=== PATIENT | female | born 1940 | race Caucasian/White ===

== ENCOUNTER 2022-01-06 10:15 | Observation (INO) ==
--- NOTE | 2022-01-06 10:33 | Emergency Department Note ---
HPI General Chief complaint: Nausea/Vomiting/Diarrhea Stated complaint: N/V/D Time Seen by Provider: 01/06/22 10:30 Source: patient Mode of arrival: wheelchair History of Present Illness HPI Narrative: Nausea vomiting diarrhea for weeks. Diarrhea least 3 weeks Patient seen by PCP January 04 with decreasing metoprolol and stopping spironola ctone due to patient having episodes of hypotension, additionally duloxetine stopped because of reported diarrhea symptoms, subsequently laboratory results informed she was hyperkalemic, per my review appears to be moderately dehydrated and slight increase in creatinine Patient does admit to taking dose of 40 mg Lasix to days ago as she felt she was filling with fluid and has taken this as needed for some time however she did not have any urinary output after taking this Emesis is not bloody, bilious or coffee ground, bowel movements not bloody or dark tarry . Patient denies current CP, sob, fever, chills, headache, focal weakness, loss/change of sensation or any other complaints at this time. Patient does take omeprazole daily states she has been consistent PMH/PSHx/Meds/Allergies/SH/FH as per nursing documentation and reviewed. A full 10 point review of systems reviewed and negative except as noted in HPI. Related Data Home Medications Medication Instructions Recorded Confirmed albuterol sulfate 90 mcg/actuation 2 puff INHALATION QID 08/26/19 01/04/22 aerosol inhaler (ProAir HFA) calcium carbonate 500 mg calcium 500 mg PO QDAY PRN 08/26/19 01/04/22 (1,250 mg) capsule cholecalciferol (vitamin D3) 125 See Rx Instructions PO QDAY tab 08/26/19 01/04/22 mcg (5,000 unit) disintegrating tablet [id number] intramuscular See Rx Instructions IM QMONTH 08/26/19 01/04/22 Previous Rx's Medication Instructions Recorded omeprazole 20 mg capsule,delayed 20 mg PO ACB #90 cap 03/22/21 release diclofenac sodium 1 % topical gel See Rx Instructions .ROUTE 06/20/21 .COMPLEX #100 g fluticasone propionate 50 1 spray INTRANASAL Q12H #16 g 08/15/21 mcg/actuation nasal spray,suspension (Flonase Allergy Relief) betamethasone dipropionate 0.05 % 1 applic TOPICAL BID PRN #180 ml 09/26/21 lotion furosemide 40 mg tablet 40 mg PO QAM PRN #90 tab 10/20/21 levothyroxine 88 mcg tablet 88 mcg PO QDAY #90 tab 10/20/21 duloxetine 20 mg capsule,delayed 20 mg PO QDAY #30 cap 12/14/21 release metoprolol succinate 100 mg See Rx Instructions .ROUTE 01/04/22 tablet,extended release 24 hr .COMPLEX #270 tab olmesartan 20 mg tablet 20 mg PO QDAY #30 tab 01/04/22 spironolactone 50 mg tablet 25 mg PO QAM #90 tab 01/04/22 Allergies Allergy/AdvReac Type Severity Reaction Status Date / Time atorvastatin [From Lipitor] Allergy Severe Unknown Verified 01/04/22 11:42 buprenorphine Allergy Severe Unknown Verified 01/04/22 11:42 lorazepam [From Ativan] Allergy Severe Unknown Verified 01/04/22 11:42 amlodipine AdvReac Mild edema Verified 01/04/22 11:42 pain medications Allergy Unknown Unknown - Uncoded 01/04/22 11:42 intolerance Review of Systems ROS ROS Narrative: see HPI PFSH Narrative Patient History Narrative: Narrative: Medical/Surgical/Family History All Active Problems (Updated 01/06/22 @ 15:11 by Surendra Allen DO) Acute kidney injury (Acute) Acute dehydration (Acute) Acute hyperkalemia (Acute) Nausea vomiting and diarrhea (Acute) Abdominal pain (Acute) Hypotension (Acute) Grief (Acute) Non-healing wound of left upper extremity (Acute) Cough (Acute) Post-nasal drip (Acute) Wound disruption (Acute) Weakness (Acute) Chronic pain of right knee (Acute) Shoulder pain, right (Acute) Thoracic back pain (Acute) Trigger finger (Acute) SOB (shortness of breath) (Acute) Skin candidiasis (Acute) Scalp psoriasis (Acute) Bradycardia (Acute) Skin lesion (Acute) History of diverticular abscess (Chronic) Arterial insufficiency (Chronic) Diverticulosis (Chronic) Systolic murmur (Chronic) Insomnia (Chronic) Anxiety (Chronic) Headache (Chronic) Depression (Chronic) Hip pain (Chronic) Degenerative disc disease, lumbar (Chronic) Hyperlipidemia (Chronic) Collagenous colitis (Chronic) Fatigue (Chronic) Emphysema, unspecified (Chronic) Degeneration, intervertebral disc, cervical (Chronic) Hypertension (Chronic) Hypothyroidism (Chronic) Carotid artery disease (Chronic) COPD (chronic obstructive pulmonary disease) (Chronic) Arthralgia (Chronic) Ventral hernia (Chronic) Renal failure (Chronic) Vertigo (Chronic) Arterial occlusive disease (Chronic) Peripheral neuropathy (Chronic) Urinary incontinence (Chronic) Chronic venous insufficiency (Chronic) Back pain (Chronic) Osteoarthritis (Chronic) Trigger finger, left ring finger (Chronic) Atrial fibrillation (Chronic) Psoriasis (Chronic) Encounter for long-term (current) use of medications (Chronic) Plantar fasciitis (Chronic) Neck pain (Chronic) Actinic keratosis (Chronic) Influenza (Chronic) Hypokalemia (Chronic) Influenza A (Acute) Hypokalemia (Acute) Medical History (Updated 01/06/22 @ 15:11 by Surendra Allen DO) Actinic keratosis Anxiety Arterial insufficiency RLE Arterial occlusive disease Arthralgia Atrial fibrillation Back pain Carotid artery disease Chronic venous insufficiency Collagenous colitis COPD (chronic obstructive pulmonary disease) Degeneration, intervertebral disc, cervical Degenerative disc disease, lumbar Depression Diverticulosis Emphysema, unspecified Encounter for long-term (current) use of medications Fatigue Headache Hip pain History of diverticular abscess Hyperlipidemia Hypertension Hypokalemia Hypothyroidism Influenza Insomnia Neck pain Osteoarthritis Peripheral neuropathy Plantar fasciitis Psoriasis Renal failure Systolic murmur Trigger finger, left ring finger Urinary incontinence Ventral hernia Vertigo Surgical History H/O cataract extraction History of appendectomy (~1985) History of back surgery (03/21/06) fusion L4-[address] Villarreal History of cholecystectomy (~1998) History of esophagogastroduodenoscopy (EGD) (10/11/16) History of hysterectomy (~1974) History of laminectomy (~10/2002) History of surgery (02/01/10) sigmoid colectomy performed by Dr. Gonzalez History of surgery left thumb, performed by Dr. Kaufman Family History Other No pertinent family history Social History Smoking Status: Never smoker Alcohol Intake Frequency: holiday/special occasion only Substance Use: does not use Exam Narrative Narrative: PHYSICIAL EXAM: Vitals reviewed GENERAL: Awake and alert in room, nontoxic-appearing appears nourished and normally developed. Vital signs as documented. EYES: Head exam is unremarkable. No scleral icterus HEENT: Mucous membranes moist. Nares patent without copious rhinorrhea. LUNGS: Lungs are clear to auscultation, -r/r/w without any respiratory distress. CARDIAC: Rhythm is regular. No dysrhythmias or murmurs. ABDOMEN: + mild tenderness palpation epigastric area, otherwise Soft, non- tender, non-distended, no rebound/guarding, with no obvious masses EXTREMITIES: No peripheral edema, with no obvious deformities. No asymmetric swelling of distal lower extremities, no calf pain to palpation, no cough exam findings concerning for deep venous thrombosis, well-perfused SKIN: Good color, with no significant rashes. No pallor. NEURO: No obvious neurological deficits, normal sensation and strength bilaterally. Patient able to ambulate. PSYCH: Mood and affect normal. Appropriate for age. Course Reevaluation(s) Reevaluation #1: Although able to establish line to give patient IV hydration difficult obtaining blood sample, will obtain EKG just to recent hyperkalemia and continue to monit or Time: 11:33 Reevaluation #2: Patient found to have elevated potassium without any EKG changes, not receiving fluids, patient is having difficulty urinating and having output which is not initially reported will obtain bladder scan to evaluate for outlet obstruction contributing to kidney function, patient not currently on Lasix or spironolactone, potassium not significantly changed from recent blood test but increasing BUN and creatinine, on exam does have pressure palpation in suprapubic area states she is on Advair which helped for the last 2 days. Believe potassium should decrease with IV hydration additionally ionized calcium within normal limits, and EKG unchanged from 12/19/2020 Bedside ultrasound performed without any significant urinary retention we will continue to hydrate Time: 12:18 Reevaluation #3: Patient has received 1 L of fluid without any significant urinary output, understands reasoning for admission declines Thomas being placed Time: 14:01 Additional Reevaluation(s): 1420 patient continues to feel improved, awaiting repeat metabolic panel testing determine need for further intervention prior to admission 1422 no change in potassium, slight improvement in creatinine but no change in BUN, due to persistent hyperkalemia will give dose of dextrose and insulin, and discuss with admitting Consultations Consultation #1: Dr. Garay spoke to the admitting physician about the patient's clinical workup as well as the emergency medicine treatment. Physician agrees to admission to their service at this time. Accepting physician will continue the medical evaluation/workup and treatment plan upon admission and add additional testing, interventions/treatment as necessary consider setting C. difficile toxin, additionally discussed reasoning for giving more insulin dextrose for hyperkalemia patient refusing Thomas catheter, creatinine improving seems most likely just component of dehydration Time: 15:34 Consultation #2: Patient now had 400 mL or urine output after 2 L NS, will change fluid to 200 mL/hr maintenance Time: 15:52 Vital Signs Vital signs: Vital Signs Temperature 97.2 F 01/06/22 10:21 Pulse Rate 93 H 01/06/22 10:21 Respiratory Rate 18 01/06/22 10:21 Blood Pressure 111/62 01/06/22 10:21 Pulse Oximetry (%) 98 01/06/22 10:21 Temperature 97.2 F 01/06/22 10:21 Pulse Rate 77 01/06/22 15:01 Respiratory Rate 20 01/06/22 15:32 Blood Pressure 165/75 01/06/22 15:32 Pulse Oximetry (%) 97 01/06/22 15:01 [facility] MDM Narrative Medical decision making narrative: All results/imaging obtained reviewed and interpreted, results trended/compared with previous levels if available to evaluate for abnormality contributing to todays presentation, Patient have worsening renal function compared dehydration hemoconcentration persistent hyperkalemia, patient was given IV hydration declined Thomas catheter but found to have acute kidney injury symptomatically improved in emergency department, After reviewing patients comorbidities, severity of history of presenting illness, labs and imaging if obtained in conjunction with physical exam and course in emergency department, deemed to have potential for deterioration/progression of symptoms that could lead to multiple morbidities or mortality, decision made that patient requires further observation/evaluation/treatment and patient admitted to appropriate service, patient/family understand and agree with plan. Chart created with voice recognition software, errors may be present due to softwares interpretation Lab Data Result diagrams: 01/06/22 11:55 Labs: Lab Results 01/06/22 01/06/22 01/06/22 Range/Units 11:55 11:55 11:55 WBC 15.2 H (4.5-11.0) K/mcL RBC 4.81 (3.59-5.38) M/mcL Hgb 14.5 (11.2-15.7) g/dL Hct 45.8 H (34.1-44.9) % POC Hct (36-48) MCV 95.2 (80.0-100.0) fL MCH 30.1 (26.0-34.0) pg MCHC 31.7 (31.0-36.0) g/dL RDW 14.3 (11.5-14.5) % Plt Count 270 (140-440) K/mcL MPV 9.9 (7.4-10.4) fL Neut % (Auto) 79.6 H (38.0-78.0) % Lymph % (Auto) 12.3 L (15.5-49.0) % [place] % (Auto) 6.0 (1.0-12.0) % Eos % (Auto) 1.6 (0.0-7.0) % Baso % (Auto) 0.5 (0.0-2.0) % Lymph # (Auto) 1.86 (1.50-4.80) K/mcL [place] # (Auto) 0.91 H (0.10-0.90) K/mcL Eos # (Auto) 0.25 (0.00-0.70) K/mcL Baso # (Auto) 0.07 (0.00-0.30) K/mcL Absolute Neutrophils 12.09 H (1.80-8.00) K/mcL POC Sodium (133-145) POC Potassium (3.3-5.1) POC Chloride (96-108) POC Total CO2 (22-30) POC BUN (6-20) POC Creatinine (0.6-1.2) POC Glucose (70-105) Insulin Level 29.3 H (2.6-24.9) uU/mL POC WB Ioniz Calcium (1.16-1.32) Magnesium 2.2 (1.6-2.5) mg/dL Lipase 50 (7-60) U/L 01/06/22/ Range/Units 12:00 14:32 WBC (4.5-11.0) K/mcL RBC (3.59-5.38) M/mcL Hgb (11.2-15.7) g/dL Hct (34.1-44.9) % POC Hct 44.0 37.0 (36-48) MCV (80.0-100.0) fL MCH (26.0-34.0) pg MCHC (31.0-36.0) g/dL RDW (11.5-14.5) % Plt Count (140-440) K/mcL MPV (7.4-10.4) fL Neut % (Auto) (38.0-78.0) % Lymph % (Auto) (15.5-49.0) % [place] % (Auto) (1.0-12.0) % Eos % (Auto) (0.0-7.0) % Baso % (Auto) (0.0-2.0) % Lymph # (Auto) (1.50-4.80) K/mcL [place] # (Auto) (0.10-0.90) K/mcL Eos # (Auto) (0.00-0.70) K/mcL Baso # (Auto) (0.00-0.30) K/mcL Absolute Neutrophils (1.80-8.00) K/mcL POC Sodium 136 138 (133-145) POC Potassium 5.9 H* 5.9 H* (3.3-5.1) POC Chloride 114 H 114 H (96-108) POC Total CO2 17.0 L 17.0 L (22-30) POC BUN 74 H 72 H (6-20) POC Creatinine 2.2 H 1.9 H (0.6-1.2) POC Glucose 99 93 (70-105) Insulin Level (2.6-24.9) uU/mL POC WB Ioniz Calcium 1.34 H 1.36 H (1.16-1.32) Magnesium (1.6-2.5) mg/dL Lipase (7-60) U/L EKG Data EKG #1: EKG attestation: Yes I reviewed and interpreted this EKG. EKG results narrative: Obtained 1147 reviewed 1149 sinus rhythm 67 prolonged AK, left axis no acute ST elevation depression signs acute ischemia AK 231 QRS 109 QT 387 QTC 409 no bundle branch block no hyper acute T waves or peaking T waves Grossly unchanged from EKG obtained December 2020 interpreted personally Discharge Plan Patient/Caregiver Discharge Instructions Pt seen by OPHTHALMIC SURGICAL ASSISTANT/PA only: No Clinical Impression: Acute kidney injury, Acute dehydration, Acute hyperkalemia, Nausea vomiting and diarrhea, Abdominal pain Patient Disposition: Xfer As Inpt ([facility]) Condition: Fair Follow up with: Landy Edward ARNP [Primary Care Provider] - Prescriptions: No Action omeprazole 20 mg capsule,delayed release(DR/EC) 20 mg PO ACB Qty: 90 1RF diclofenac sodium 1 % gel See Rx Instructions .ROUTE .COMPLEX Qty: 100 6RF Dose Instruction: APPLY 2 GRAMS OF GEL TOPICALLY TO SINGLE ELBOW, WRIST, OR HAND (WHICH INCLUDES PALM, FINGERS, AND BACK OF HAND) 4 TIMES DAILY Rx Instructions: APPLY 2 GRAMS OF GEL TOPICALLY TO SINGLE ELBOW, WRIST, OR HAND (WHICH INCLUDES PALM, FINGERS, AND BACK OF HAND) 4 TIMES DAILY betamethasone dipropionate 0.05 % lotion 1 applic TOPICAL BID PRN (Reason: skin irritation) Qty: 180 3RF spironolactone 50 mg tablet 25 mg PO QAM Qty: 90 1RF cholecalciferol (vitamin D3) 5,000 unit tablet,disintegrating See Rx Instructions PO QDAY 0RF Rx Instructions: 5,000 unit PO daily; calcium carbonate 500 mg calcium (1,250 mg) capsule 500 mg calcium (1,250 mg) capsule 500 mg PO QDAY PRN0RF albuterol sulfate [ProAir HFA] 90 mcg/actuation HFA aerosol inhaler 2 puff INHALATION QID 0RF [id number] injectable See Rx Instructions IM QMONTH 0RF Rx Instructions: 1000MCG IM monthly; duloxetine 20 mg capsule,delayed release(DR/EC) 20 mg PO QDAY Qty: 30 0RF metoprolol succinate 100 mg tablet extended release 24 hr See Rx Instructions .ROUTE .COMPLEX Qty: 270 0RF Dose Instruction: TAKE 2 TABLETS BY MOUTH IN THE MORNING AND 1 TABLET IN THE EVENING Rx Instructions: TAKE 1 TABLETS BY MOUTH IN THE MORNING AND 1 TABLET IN THE EVENING olmesartan 20 mg tablet 20 mg PO QDAY Qty: 30 0RF fluticasone propionate [Flonase Allergy Relief] 50 mcg/actuation spray,suspension 1 spray intranasal Q12H Qty: 16 4RF Rx Instructions: administer into each nostril furosemide 40 mg tablet 40 mg PO QAM PRN (Reason: edema) Qty: 90 1RF levothyroxine 88 mcg tablet 88 mcg PO QDAY Qty: 90 3RF
[2022-01-06] MEDS ORDERED: DICYCLOMINE 20 MG TABLET PO ONE (10:38)
[2022-01-06] MEDS ORDERED: 0.9 % SODIUM CHLORIDE 1,000 ML IV ONE ×2 (10:38→12:34)
[2022-01-06] MEDS ORDERED: SUCRALFATE 1 GM/10 ML ORAL.SUSP PO ONE (10:38)
[2022-01-06 12:03] LABS: POC Calcium, Ionized 1.34 (1.16-1.32); POC Creatinine 2.2 (0.6-1.2); POC Potassium 5.9 (3.3-5.1)
[2022-01-06] MEDS ORDERED: ACETAMINOPHEN 500 MG TABLET PO ONE (12:13)
[2022-01-06 12:35] LABS: Basophils # (Auto) 0.07 K/mcL (0.00-0.30); Basophils % (Auto) 0.5 % (0.0-2.0); Eosinophils # (Auto) 0.25 K/mcL (0.00-0.70); Eosinophils % (Auto) 1.6 % (0.0-7.0); Hematocrit 45.8 % (34.1-44.9); Hemoglobin 14.5 g/dL (11.2-15.7); Lymphocytes # (Auto) 1.86 K/mcL (1.50-4.80); Lymphocytes % (Auto) 12.3 % (15.5-49.0); Mean Cell Volume 95.2 fL (80.0-100.0); Mean Corpuscular HGB Conc 31.7 g/dL (31.0-36.0); Mean Platelet Volume 9.9 fL (7.4-10.4); Monocytes # (Auto) 0.91 K/mcL (0.10-0.90); Neutrophils % (Auto) 79.6 % (38.0-78.0); Platelet Count 270 K/mcL (140-440); RBC 4.81 M/mcL (3.59-5.38); Red Cell Distribution Width 14.3 % (11.5-14.5); WBC 15.2 K/mcL (4.5-11.0)
[2022-01-06 14:38] LABS: POC Calcium, Ionized 1.36 (1.16-1.32); POC Creatinine 1.9 (0.6-1.2); POC Potassium 5.9 (3.3-5.1)
[2022-01-06] MEDS ORDERED: DEXTROSE 50% 50 ML VIAL IV ONE (14:41)
[2022-01-06] MEDS ORDERED: INSULIN REGULAR, HUMAN 1 UNIT/0.01 ML UNIT IV ONE (14:41)
[2022-01-06] MEDS ORDERED: DEXTROSE 50% 50 ML SYRINGE IV ONE ×2 (14:57→15:37)
[2022-01-06] MEDS ORDERED: ONDANSETRON 4 MG/2 ML VIAL IV PRN (15:35)
[2022-01-06] MEDS ORDERED: ALBUTEROL SULFATE 2.5 MG/3 ML NEBULIZER NEB PRN (15:35)
[2022-01-06] MEDS ORDERED: MELATONIN 3 MG TABLET PO PRN (15:35)
[2022-01-06] MEDS ORDERED: PROCHLORPERAZINE 10 MG/2 ML VIAL IV PRN (15:35)
[2022-01-06] MEDS ORDERED: QUEtiapine 25 MG TABLET PO PRN (15:35)
[2022-01-06] MEDS ORDERED: hydrALAZINE 20 MG/ML VIAL IV PRN (15:35)
[2022-01-06] MEDS ORDERED: 0.9 % SODIUM CHLORIDE 1,000 ML IV SCH (15:45)
[2022-01-06] MEDS ORDERED: ONDANSETRON 4 MG/2 ML VIAL IV ONE (16:05)
[2022-01-06] MEDS: 0.9 % SODIUM CHLORIDE 1,000 ML IV SCH (18:49)
[2022-01-06] MEDS: ACETAMINOPHEN 325 MG TABLET PO PRN (20:15)
[2022-01-06] MEDS ORDERED: SENNOSIDES 1 TABLET PO SCH (21:00)
[2022-01-06] MEDS: DOCUSATE SODIUM 100 MG CAPSULE PO SCH (21:07)
[2022-01-06] MEDS: HEPARIN 5,000 UNIT/ML VIAL SQ SCH (21:07)
[2022-01-06] MEDS: 0.9 % SODIUM CHLORIDE 10 ML SYRINGE IV SCH (21:08)
[2022-01-06 22:25] LABS: ALT/SGPT 11 U/L (<40); AST/SGOT 12 U/L (<32); Albumin 3.1 gm/dL (3.2-5.2); Albumin/Globulin Ratio 1.3 (1.0-2.3); Alkaline Phosphatase 84 U/L (39-117); Bilirubin,Total 0.3 mg/dL (0.1-1.0); Blood Urea Nitrogen 48 mg/dL (8-23); Calcium 8.1 mg/dL (8.6-10.4); Carbon Dioxide 12 mmol/L (22-30); Chloride 112 mmol/L (96-108); Globulin 2.3 gm/dL (2.2-3.7); Glomerular Filtration Rate 35; Glucose 100 mg/dL (70-105)
[2022-01-07] MEDS: 0.9 % SODIUM CHLORIDE 1,000 ML IV SCH ×2 (01:50→09:39)
[2022-01-07 06:56] LABS: Basophils # (Auto) 0.06 K/mcL (0.00-0.30); Basophils % (Auto) 0.7 % (0.0-2.0); Eosinophils # (Auto) 0.24 K/mcL (0.00-0.70); Eosinophils % (Auto) 2.8 % (0.0-7.0); Hematocrit 36.5 % (34.1-44.9); Hemoglobin 11.3 g/dL (11.2-15.7); Lymphocytes # (Auto) 1.71 K/mcL (1.50-4.80); Lymphocytes % (Auto) 20.2 % (15.5-49.0); Mean Cell Volume 98.1 fL (80.0-100.0); Mean Platelet Volume 9.7 fL (7.4-10.4); Monocytes # (Auto) 0.53 K/mcL (0.10-0.90); Monocytes % (Auto) 6.3 % (1.0-12.0); Platelet Count 169 K/mcL (140-440); RBC 3.72 M/mcL (3.59-5.38); Red Cell Distribution Width 14.3 % (11.5-14.5); WBC 8.5 K/mcL (4.5-11.0)
[2022-01-07 07:18] LABS: ALT/SGPT 11 U/L (<40); AST/SGOT 13 U/L (<32); Albumin 3.2 gm/dL (3.2-5.2); Albumin/Globulin Ratio 1.3 (1.0-2.3); Alkaline Phosphatase 90 U/L (39-117); Bilirubin,Total 0.3 mg/dL (0.1-1.0); Blood Urea Nitrogen 40 mg/dL (8-23); Calcium 8.3 mg/dL (8.6-10.4); Carbon Dioxide 12 mmol/L (22-30); Chloride 114 mmol/L (96-108); Globulin 2.4 gm/dL (2.2-3.7); Glomerular Filtration Rate 42; Glucose 88 mg/dL (70-105)
[2022-01-07] MEDS ORDERED: PANTOPRAZOLE 40 MG TABLET PO SCH (07:30)
[2022-01-07] MEDS ORDERED: LEVOTHYROXINE 88 MCG TABLET PO SCH (07:30)
[2022-01-07] MEDS: HEPARIN 5,000 UNIT/ML VIAL SQ SCH (07:56)
[2022-01-07] MEDS: 0.9 % SODIUM CHLORIDE 10 ML SYRINGE IV SCH (07:58)
[2022-01-07] MEDS: DOCUSATE SODIUM 100 MG CAPSULE PO SCH (07:58)
[2022-01-07] MEDS: ACETAMINOPHEN 325 MG TABLET PO PRN (08:53)
--- NOTE | 2022-01-07 10:08 | Internal Med History&Physical ---
HPI History of Present Illness Patient information: Note initiated : 01/06/22 at 22:07 am Service Date, if different from initiated Date: [] Patient: Lula Lopez a 81 y/o F admitted on 01/06/22 for N/V/D. Chief Complaint: [] History of present illness: Ms. Lopez is a 81 year old F This is a 81-year-old female with a history of obesity, uncontrolled blood pressure, GERD, chronic diarrhea ? Colitis was brought to the ER due to loose stools leg cramps and tiredness. Reportedly having chronic loose stools and reported colitis has been following with outpatient provider. Patient was recently started on spironolactone and she started noticing leg cramps couple of days ago started taking her potassium supplements and brought to the ER because of tiredness nausea. Patient was evaluated and found to have a potassium of 5.8 and her potassium remained the same number even after initial treatment in the ER. Patient is not bothered by the diarrhea which is chronic for her. Patient had few episodes of vomiting which improved in the ER. Review of systems Constitutional: Fatigue tiredness no chills or fever Eyes: no vision changes or pain Cardiovascular: no chest pain, no palpitations Respiratory: no cough or dyspnea Gastrointestinal: no nausea and stil have abdominal discomfort. Genitourinary: no dysuria or difficulty voiding Musculoskeletal: Leg cramps Integumentary: no skin lesion or wound Neurological: no focal weakness or numbness Psychiatric: no anxiety or depression Physical exam Head: No bruises, normal-appearing nontraumatic Eyes: normal appearance, no scleral icterus. Neck: full ROM Respiratory: no respiratory distress. Cardiovascular: normal rate and rhythm, S1, S2. GI/Abdominal: soft, nontender, no guarding. Extremities: full range of motion, nontender. Neurological: CN II-XII intact, intact motor, intact sensation. Psychiatric: normal mood. Skin: warm, normal color PFSH PFSH All Active Problems (Updated 01/06/22 @ 15:11 by Surendra Allen DO) Acute kidney injury (Acute) Acute dehydration (Acute) Acute hyperkalemia (Acute) Nausea vomiting and diarrhea (Acute) Abdominal pain (Acute) Hypotension (Acute) Grief (Acute) Non-healing wound of left upper extremity (Acute) Cough (Acute) Post-nasal drip (Acute) Wound disruption (Acute) Weakness (Acute) Chronic pain of right knee (Acute) Shoulder pain, right (Acute) Thoracic back pain (Acute) Trigger finger (Acute) SOB (shortness of breath) (Acute) Skin candidiasis (Acute) Scalp psoriasis (Acute) Bradycardia (Acute) Skin lesion (Acute) History of diverticular abscess (Chronic) Arterial insufficiency (Chronic) Diverticulosis (Chronic) Systolic murmur (Chronic) Insomnia (Chronic) Anxiety (Chronic) Headache (Chronic) Depression (Chronic) Hip pain (Chronic) Degenerative disc disease, lumbar (Chronic) Hyperlipidemia (Chronic) Collagenous colitis (Chronic) Fatigue (Chronic) Emphysema, unspecified (Chronic) Degeneration, intervertebral disc, cervical (Chronic) Hypertension (Chronic) Hypothyroidism (Chronic) Carotid artery disease (Chronic) COPD (chronic obstructive pulmonary disease) (Chronic) Arthralgia (Chronic) Ventral hernia (Chronic) Renal failure (Chronic) Vertigo (Chronic) Arterial occlusive disease (Chronic) Peripheral neuropathy (Chronic) Urinary incontinence (Chronic) Chronic venous insufficiency (Chronic) Back pain (Chronic) Osteoarthritis (Chronic) Trigger finger, left ring finger (Chronic) Atrial fibrillation (Chronic) Psoriasis (Chronic) Encounter for long-term (current) use of medications (Chronic) Plantar fasciitis (Chronic) Neck pain (Chronic) Actinic keratosis (Chronic) Influenza (Chronic) Hypokalemia (Chronic) Influenza A (Acute) Hypokalemia (Acute) Medical History (Updated 01/06/22 @ 15:11 by Surendra Allen DO) Actinic keratosis Anxiety Arterial insufficiency RLE Arterial occlusive disease Arthralgia Atrial fibrillation Back pain Carotid artery disease Chronic venous insufficiency Collagenous colitis COPD (chronic obstructive pulmonary disease) Degeneration, intervertebral disc, cervical Degenerative disc disease, lumbar Depression Diverticulosis Emphysema, unspecified Encounter for long-term (current) use of medications Fatigue Headache Hip pain History of diverticular abscess Hyperlipidemia Hypertension Hypokalemia Hypothyroidism Influenza Insomnia Neck pain Osteoarthritis Peripheral neuropathy Plantar fasciitis Psoriasis Renal failure Systolic murmur Trigger finger, left ring finger Urinary incontinence Ventral hernia Vertigo Surgical History H/O cataract extraction History of appendectomy (~1985) History of back surgery (03/21/06) fusion L4-[address] Villarreal History of cholecystectomy (~1998) History of esophagogastroduodenoscopy (EGD) (10/11/16) History of hysterectomy (~1974) History of laminectomy (~10/2002) History of surgery (02/01/10) sigmoid colectomy performed by Dr. Gonzalez History of surgery left thumb, performed by Dr. Kaufman Family History Other No pertinent family history Social History marital status: occupational status: retired alcohol intake frequency: holiday/special occasion only substance use type: does not use MEDS/ALLERGIES Home Medications and Allergies Home Medications Medication Instructions Recorded Confirmed Type diclofenac sodium 1 % topical gel See Rx Instructions .ROUTE 06/20/21 01/06/22 Rx .COMPLEX #100 g fluticasone propionate 50 1 spray INTRANASAL Q12H #16 g 08/15/21 01/06/22 Rx mcg/actuation nasal spray,suspension (Flonase Allergy Relief) betamethasone dipropionate 0.05 % 1 applic TOPICAL BID PRN #180 ml 09/26/21 01/06/22 Rx lotion furosemide 40 mg tablet 40 mg PO QAM PRN #90 tab 10/20/21 01/06/22 Rx levothyroxine 88 mcg tablet 88 mcg PO QDAY #90 tab 10/20/21 01/06/22 Rx metoprolol succinate 100 mg See Rx Instructions .ROUTE 01/04/22 01/06/22 Rx tablet,extended release 24 hr .COMPLEX #270 tab benzonatate 200 mg capsule 200 mg PO BID PRN 01/07/22 01/07/22 History olmesartan 40 mg tablet 40 mg PO QDAY 01/07/22 01/07/22 History omeprazole 40 mg capsule,delayed 40 mg PO ACB 01/07/22 01/07/22 History release Allergies Allergy/AdvReac Type Severity Reaction Status Date / Time atorvastatin [From Lipitor] Allergy Severe Rash Verified 01/06/22 19:03 buprenorphine Allergy Severe Unknown Verified 01/06/22 19:03 lorazepam [From Ativan] Allergy Severe Agitated Verified 01/06/22 19:03 hydrocodone Allergy Intermediate Rash Verified 01/06/22 19:03 morphine Allergy Intermediate Rash Verified 01/06/22 19:03 oxycodone Allergy Intermediate Rash Verified 01/06/22 19:03 amlodipine AdvReac Mild edema Verified 01/04/22 11:42 EXAM Constitutional Vitals: Temp Pulse Resp BP Pulse Ox 98.2 F 76 16 120/96 92 01/07/22 08:54 01/06/22 23:56 01/07/22 08:54 01/07/22 08:54 01/07/22 08:54 DATA Data Completed and Pending Labs: Labs from last 24 hours 01/07/22 01/07/22 01/06/22 05:26 05:26 21:04 WBC 8.5 RBC 3.72 Hgb 11.3 Hct 36.5 POC Hct MCV 98.1 MCH 30.4 MCHC 31.0 RDW 14.3 Plt Count 169 MPV 9.7 Neut % (Auto) 70.0 Lymph % (Auto) 20.2 Crawford % (Auto) 6.3 Eos % (Auto) 2.8 Baso % (Auto) 0.7 Lymph # (Auto) 1.71 Crawford # (Auto) 0.53 Eos # (Auto) 0.24 Baso # (Auto) 0.06 Absolute Neutrophils 5.93 POC Sodium Sodium 131 L 135 POC Potassium Potassium 5.1 5.0 POC Chloride Chloride 114 H 112 H Carbon Dioxide 12 L 12 L POC Total CO2 Anion Gap 5.0 L 11.0 POC BUN BUN 40 H 48 H Creatinine 1.2 H 1.4 H POC Creatinine GFR Calculation 42 35 Glucose 88 100 POC Glucose Insulin Level Calcium 8.3 L 8.1 L POC WB Ioniz Calcium Magnesium 1.7 Total Bilirubin 0.3 0.3 AST 13 12 ALT 11 11 Alkaline Phosphatase 90 84 Total Protein 5.6 L 5.4 L Albumin 3.2 3.1 L Globulin 2.4 2.3 Albumin/Globulin Ratio 1.3 1.3 Lipase 01/06/22 01/06/22 01/06/22 14:32 12:00 11:55 WBC RBC Hgb Hct POC Hct 37.0 44.0 MCV MCH MCHC RDW Plt Count MPV Neut % (Auto) Lymph % (Auto) Crawford % (Auto) Eos % (Auto) Baso % (Auto) Lymph # (Auto) Crawford # (Auto) Eos # (Auto) Baso # (Auto) Absolute Neutrophils POC Sodium 138 136 Sodium POC Potassium 5.9 H* 5.9 H* Potassium POC Chloride 114 H 114 H Chloride Carbon Dioxide POC Total CO2 17.0 L 17.0 L Anion Gap POC BUN 72 H 74 H BUN Creatinine POC Creatinine 1.9 H 2.2 H GFR Calculation Glucose POC Glucose 93 99 Insulin Level 29.3 H Calcium POC WB Ioniz Calcium 1.36 H 1.34 H Magnesium Total Bilirubin AST ALT Alkaline Phosphatase Total Protein Albumin Globulin Albumin/Globulin Ratio Lipase 01/06/22 01/06/22 11:55 11:55 WBC 15.2 H RBC 4.81 Hgb 14.5 Hct 45.8 H POC Hct MCV 95.2 MCH 30.1 MCHC 31.7 RDW 14.3 Plt Count 270 MPV 9.9 Neut % (Auto) 79.6 H Lymph % (Auto) 12.3 L Crawford % (Auto) 6.0 Eos % (Auto) 1.6 Baso % (Auto) 0.5 Lymph # (Auto) 1.86 Crawford # (Auto) 0.91 H Eos # (Auto) 0.25 Baso # (Auto) 0.07 Absolute Neutrophils 12.09 H POC Sodium Sodium POC Potassium Potassium POC Chloride Chloride Carbon Dioxide POC Total CO2 Anion Gap POC BUN BUN Creatinine POC Creatinine GFR Calculation Glucose POC Glucose Insulin Level Calcium POC WB Ioniz Calcium Magnesium 2.2 Total Bilirubin AST ALT Alkaline Phosphatase Total Protein Albumin Globulin Albumin/Globulin Ratio Lipase 50 A/P Narrative Plan of Treatment: Hyperkalemia due to medications Patient came in with the leg cramps and potassium of 5.8 initial treatment potassium remained same Patient has been taking olmesartan, spironolactone and potassium supplements Patient reportedly having abdominal cramps and loose stools which is chronic Plan We will start her on IV fluid resuscitation She was given insulin and dextrose in the ER Will consider Kayexalate after rechecking her potassium Advised the patient did not take potassium supplements spironolactone Patient wants to keep her olmesartan she think that is only 1 helping her with the blood pressure She was recently started on spironolactone Because of the leg cramps patient started taking potassium supplements-advised her not to take any potassium supplements along with olmesartan Acute renal failure Creatinine 1.7 with a baseline normal Probably due to medications IV fluid resuscitation and recheck Ultrasound if needed Chronic diarrhea Patient reported chronic loose stools with collagenous colitis Advised her to follow-up with outpatient primary care and gastroenterology DVT prophylaxis-SCDs and subcu heparin CODE STATUS-full code Time Spent With Patient Time: Total time spent is greater than 50% in coordination of care (as documented) at patient's floor/unit and/or counseling patient: QUALITY Stroke Symptom Onset Unknown: No VTE Deep Vein Thrombosis/Pulmonary Embolism Present on Admission: No
--- NOTE | 2022-01-07 10:13 | Discharge Summary ---
Discharge Provider Provider IMPORTANT FOLLOW-UP INFORMATION FOR PCP: Patient information: Note initiated : 01/07/22 at 10:12 am Service Date, if different from initiated Date: [] Patient: Lula Lopez 81 y/o F admitted on 01/06/22 for N/V/D. Chief Complaint: [] Date of admission: 01/06/22 17:50 Discharge date: 01/07/22 Primary care physician: Landy Edward Consults: 01/06/22 Consult to Physician [CONS] Stat Comment: Consulting Provider: Grady Bond Reason For Exam: Physician to Consult COURSE Hospital Course Hospital course: Hyperkalemia due to medications Patient came in with the leg cramps and potassium of 5.8 initial treatment potassium remained same Patient has been taking olmesartan, spironolactone and potassium supplements Patient reportedly having abdominal cramps and loose stools which is chronic Plan We will start her on IV fluid resuscitation She was given insulin and dextrose in the ER Will consider Kayexalate after rechecking her potassium Advised the patient did not take potassium supplements spironolactone Patient wants to keep her olmesartan she think that is only 1 helping her with the blood pressure She was recently started on spironolactone Because of the leg cramps patient started taking potassium supplements-advised her not to take any potassium supplements along with olmesartan Her potassium improved to 5.1 she wanted to be discharged home. Advised her to not to take potassium supplements or spironolactone but she wanted to continue olmesartan Acute renal failure Creatinine 1.7 and improved with IV fluid hydration Probably due to medications Needs to follow-up with outpatient primary care Chronic diarrhea Patient reported chronic loose stools with collagenous colitis Advised her to follow-up with outpatient primary care and gastroenterology DVT prophylaxis-SCDs and subcu heparin CODE STATUS-full code 81-year-old female with a history of obesity, uncontrolled blood pressure, GERD, chronic diarrhea ? Colitis was brought to the ER due to loose stools leg cramps and tiredness. Reportedly having chronic loose stools and reported colitis has been following with outpatient provider. Patient was recently started on spironolactone and she started noticing leg cramps couple of days ago started taking her potassium supplements and brought to the ER because of tiredness nausea. Patient was evaluated and found to have a potassium of 5.8 and her potassium remained the same number even after initial treatment in the ER. Patient is not bothered by the diarrhea which is chronic for her. Patient had few episodes of vomiting which improved in the ER. 01/07 Her potassium improved to 5.0 Advised the patient do not take any potassium supplements or spironolactone She wanted to keep olmesartan she think that is only blood pressure medication helping her after fighting for few years Advised her to follow-up with primary care provider and recheck potassium in 5 days Stop the Lasix due to renal failure and dehydration this needs to be reevaluated by follow-up Review of systems Constitutional: Fatigue tiredness no chills or fever Eyes: no vision changes or pain Cardiovascular: no chest pain, no palpitations Respiratory: no cough or dyspnea Gastrointestinal: no nausea and stil have abdominal discomfort. Genitourinary: no dysuria or difficulty voiding Musculoskeletal: Leg cramps Integumentary: no skin lesion or wound Neurological: no focal weakness or numbness Psychiatric: no anxiety or depression Physical exam Head: No bruises, normal-appearing nontraumatic Eyes: normal appearance, no scleral icterus. Neck: full ROM Respiratory: no respiratory distress. Cardiovascular: normal rate and rhythm, S1, S2. GI/Abdominal: soft, nontender, no guarding. Extremities: full range of motion, nontender. Neurological: CN II-XII intact, intact motor, intact sensation. Psychiatric: normal mood. Skin: warm, normal color Discharge diagnosis: Acute renal failure, hyperkalemia Time Spent with Patient Time attestation: Total time spent providing and/or coordinating discharge services: Time spent: Greater than 30 minutes EXAM Constitutional Vitals: Temp Pulse Resp BP Pulse Ox 98.2 F 76 16 120/96 92 01/07/22 08:54 01/06/22 23:56 01/07/22 08:54 01/07/22 08:54 01/07/22 08:54 Discharge Data Data Completed and Pending Labs on day of discharge: Labs from last 24 hours 01/07/22 01/07/22 01/06/22 05:26 05:26 21:04 WBC 8.5 RBC 3.72 Hgb 11.3 Hct 36.5 POC Hct MCV 98.1 MCH 30.4 MCHC 31.0 RDW 14.3 Plt Count 169 MPV 9.7 Neut % (Auto) 70.0 Lymph % (Auto) 20.2 Leslie % (Auto) 6.3 Eos % (Auto) 2.8 Baso % (Auto) 0.7 Lymph # (Auto) 1.71 Leslie # (Auto) 0.53 Eos # (Auto) 0.24 Baso # (Auto) 0.06 Absolute Neutrophils 5.93 POC Sodium Sodium 131 L 135 POC Potassium Potassium 5.1 5.0 POC Chloride Chloride 114 H 112 H Carbon Dioxide 12 L 12 L POC Total CO2 Anion Gap 5.0 L 11.0 POC BUN BUN 40 H 48 H Creatinine 1.2 H 1.4 H POC Creatinine GFR Calculation 42 35 Glucose 88 100 POC Glucose Insulin Level Calcium 8.3 L 8.1 L POC WB Ioniz Calcium Magnesium 1.7 Total Bilirubin 0.3 0.3 AST 13 12 ALT 11 11 Alkaline Phosphatase 90 84 Total Protein 5.6 L 5.4 L Albumin 3.2 3.1 L Globulin 2.4 2.3 Albumin/Globulin Ratio 1.3 1.3 Lipase 01/06/22 01/06/22 01/06/22 14:32 12:00 11:55 WBC RBC Hgb Hct POC Hct 37.0 44.0 MCV MCH MCHC RDW Plt Count MPV Neut % (Auto) Lymph % (Auto) Leslie % (Auto) Eos % (Auto) Baso % (Auto) Lymph # (Auto) Leslie # (Auto) Eos # (Auto) Baso # (Auto) Absolute Neutrophils POC Sodium 138 136 Sodium POC Potassium 5.9 H* 5.9 H* Potassium POC Chloride 114 H 114 H Chloride Carbon Dioxide POC Total CO2 17.0 L 17.0 L Anion Gap POC BUN 72 H 74 H BUN Creatinine POC Creatinine 1.9 H 2.2 H GFR Calculation Glucose POC Glucose 93 99 Insulin Level 29.3 H Calcium POC WB Ioniz Calcium 1.36 H 1.34 H Magnesium Total Bilirubin AST ALT Alkaline Phosphatase Total Protein Albumin Globulin Albumin/Globulin Ratio Lipase 01/06/22 01/06/22 11:55 11:55 WBC 15.2 H RBC 4.81 Hgb 14.5 Hct 45.8 H POC Hct MCV 95.2 MCH 30.1 MCHC 31.7 RDW 14.3 Plt Count 270 MPV 9.9 Neut % (Auto) 79.6 H Lymph % (Auto) 12.3 L Leslie % (Auto) 6.0 Eos % (Auto) 1.6 Baso % (Auto) 0.5 Lymph # (Auto) 1.86 Leslie # (Auto) 0.91 H Eos # (Auto) 0.25 Baso # (Auto) 0.07 Absolute Neutrophils 12.09 H POC Sodium Sodium POC Potassium Potassium POC Chloride Chloride Carbon Dioxide POC Total CO2 Anion Gap POC BUN BUN Creatinine POC Creatinine GFR Calculation Glucose POC Glucose Insulin Level Calcium POC WB Ioniz Calcium Magnesium 2.2 Total Bilirubin AST ALT Alkaline Phosphatase Total Protein Albumin Globulin Albumin/Globulin Ratio Lipase 50 Discharge Plan Patient/Caregiver Discharge Instructions Activity: increase activity as tolerated Diet: Renal Activity Restrictions/Additional Instructions: stop Taking potassium suplements stop spirinolactone recheck potassium in 5 days and follow up with primary care doc Prescriptions: Continued diclofenac sodium 1 % gel See Rx Instructions .ROUTE .COMPLEX Qty: 100 6RF Dose Instruction: APPLY 2 GRAMS OF GEL TOPICALLY TO SINGLE ELBOW, WRIST, OR HAND (WHICH INC LUDES PALM, FINGERS, AND BACK OF HAND) 4 TIMES DAILY Rx Instructions: APPLY 2 GRAMS OF GEL TOPICALLY TO SINGLE ELBOW, WRIST, OR HAND (WHICH INCLUDES PALM, FINGERS, AND BACK OF HAND) 4 TIMES DAILY betamethasone dipropionate 0.05 % lotion 1 applic TOPICAL BID PRN (Reason: skin irritation) Qty: 180 3RF metoprolol succinate 100 mg tablet extended release 24 hr See Rx Instructions .ROUTE .COMPLEX Qty: 270 0RF Dose Instruction: TAKE 2 TABLETS BY MOUTH IN THE MORNING AND 1 TABLET IN THE EVENING Rx Instructions: TAKE 1 TABLETS BY MOUTH IN THE MORNING AND 1 TABLET IN THE EVENING fluticasone propionate [Flonase Allergy Relief] 50 mcg/actuation spray,suspension 1 spray intranasal Q12H Qty: 16 4RF Rx Instructions: administer into each nostril levothyroxine 88 mcg tablet 88 mcg PO QDAY Qty: 90 3RF omeprazole 40 mg Capsule,Delayed Release(Dr/Ec) 40 mg PO ACB 0RF olmesartan 40 mg Tablet 40 mg PO QDAY 0RF benzonatate 200 mg Capsule 200 mg PO BID PRN (Reason: Cough) 0RF Discontinued furosemide 40 mg tablet 40 mg PO QAM PRN (Reason: edema) Qty: 90 1RF Follow Up Plan Follow up with: Landy Edward ARNP [Primary Care Provider] - Patient Disposition: Home, Self-Care Plan of Treatment: Hyperkalemia due to medications Patient came in with the leg cramps and potassium of 5.8 initial treatment potassium remained same Patient has been taking olmesartan, spironolactone and potassium supplements Patient reportedly having abdominal cramps and loose stools which is chronic Plan We will start her on IV fluid resuscitation She was given insulin and dextrose in the ER Will consider Kayexalate after rechecking her potassium Advised the patient did not take potassium supplements spironolactone Patient wants to keep her olmesartan she think that is only 1 helping her with the blood pressure She was recently started on spironolactone Because of the leg cramps patient started taking potassium supplements-advised her not to take any potassium supplements along with olmesartan Her potassium improved to 5.1 she wanted to be discharged home. Advised her to not to take potassium supplements or spironolactone but she wanted to continue olmesartan Acute renal failure Creatinine 1.7 and improved with IV fluid hydration Probably due to medications Needs to follow-up with outpatient primary care Chronic diarrhea Patient reported chronic loose stools with collagenous colitis Advised her to follow-up with outpatient primary care and gastroenterology DVT prophylaxis-SCDs and subcu heparin CODE STATUS-full code Prognosis: Fair Discharge Orders: Discharge Order (Routine); Ordered 01/07/22 Ordered By: Nataliya WOMACK VTE Deep Vein Thrombosis/Pulmonary Embolism Present on Admission: No
--- NOTE | 2022-01-10 19:37 | EKG ---
[facility] Test Date: 2022-01-06 Pat Name: Lula Lopez Department: ED Room: Gender: Female [employer]ist: CS : 1940 Requested By: Surendra Allen Order Number: [id number] Reading MD: Aneudy Madera Measurements Intervals [place] Rate: 67 P: 70 MO: 231 QRS: -39 QRSD: 109 T: 62 QT: 387 QTc: 409 Interpretive Statements Sinus rhythm Prolonged MO interval Left axis deviation Anterior infarct, old Electronically Signed On 01-10-2022 19:35:52 PDT by Aneudy Madera /store/M0/[id number]
== END 2022-01-07 11:29 | disposition home or self-care (01) ==
LOC: ED 10:15 → ICU 10:15
PROVIDERS: ADMIT Internal Medicine; ATTEND Internal Medicine